=== PATIENT | female | born 1970 | race Caucasian/White ===

== ENCOUNTER 2017-05-08 13:43 | Emergency (ER) | payer BC ==
[~2017-05-08] VITALS: Ht 163.8 cm; Wt 107.5 kg
[~2017-05-08 13:43] MED LIST: LEVO75TA36 PO; TRAM-10 PO; [UNRECOGNIZED DRUG - OTHER]; [UNRECOGNIZED DRUG - OTHER]
[2017-05-08 13:45] VITALS: TEMP 36.7; Ht 163.8 cm; Wt 107.5 kg
[2017-05-08 14:21] LABS: BASO % 0.3 %; BASO ABS # 0.02 K/uL (0-0.2); COMPLETE YES; EOS % 1.9 %; HEMATOCRIT 38.5 % (37-47); IG% 0.1 %; LYMPH % 35.3 %; LYMPH ABS # 2.62 K/uL (1.2-3.4); MEAN CELL VOLUME 90.4 fL (80-100); MEAN CORPUSCULAR HGB CONC 34.3 g/dl (32-36); MEAN PLATELET VOLUME 9.6 fL (7.4-10.4); MONO % 6.3 %; NEUT % 56.1 %; PLATELET COUNT 231 K/uL (130-400); RED BLOOD COUNT 4.26 M/uL (4.2-5.4); WHITE BLOOD COUNT 7.43 K/uL (4.8-10.8)
[2017-05-08 14:33] LABS: BLOOD UREA NITROGEN 13 mg/dl (7-18); BUN/CREATININE RATIO 11.5 (10-20); CALCIUM 8.7 mg/dl (8.5-10.1); CARBON DIOXIDE 28 mmol/L (21-32); CHLORIDE 105 mmol/L (98-107); GLUCOSE 87 mg/dl (70-99); POTASSIUM 3.9 mmol/L (3.5-5.1); SODIUM 141 mmol/L (136-145)
[2017-05-08 14:35] LABS: INR 0.9 (0.9-1.1); PROTHROMBIN TIME (PATIENT) 10.1 SECONDS (9.0-12.0)
[2017-05-08 14:40] LABS: PREG INTERNAL NEGATIVE QC NEG CLEAR BACKGROUND; PREG INTERNAL POSITIVE QC POS CONTROL LINE
[2017-05-08 14:43] VITALS: PULSE 72
[2017-05-08 14:43] LABS: ALKALINE PHOSPHATASE 40 U/L (45-117); ALT/SGPT 16 U/L (12-78); AST/SGOT 17 U/L (15-37)
--- NOTE | 2017-05-08 14:44 | EMERGENCY ROOM VISIT NOTE ---
History First contact with patient: 14:01 Chief Complaint: HYPERTENSION Stated Complaint: HIGH BLOOD PRESSURE/BLURRY SIGHT IN LT EYE History of Present Illness The patient is a 46 year old female who presents to the Emergency Room via private vehicle with complaints of "high blood pressure, blurry site in the left eye". The patient states that today, she was going to work at 8 AM sat down at her computer and she noticed blurriness develop in her left eye. She states that the entire field of vision in the left eye is blurry and it is worsening. She does have a history of ocular migraines, and did take her medicine which is sumatriptan without relief. The vision persists to be blurry. She states this is unlike her typical ocular migraine, because with Bureau has flashes of lights and some pain. She again states there is no pain in the left eye. She states that she was able to call the on-call nurse with [facility] who instructed her to go to the emergency department. She also took her blood pressure after the event and it was found to be elevated. She has an appointment scheduled with her family doctor tomorrow for a blood pressure recheck. She also notes that about 2 weeks ago she pointed muscle just below the left scapular bone, and this is worse with movement. Also worse with deep breath. She states that she seen her family doctor and had x-rays which were negative. She states that when she rests the pain diminishes but when she utilizes the left shoulder instructed the muscle the pain comes back. She denies any pain at this time, chest pain, shortness of breath, fevers, chills. She denies any history of blood clots, or stroke. She does were glasses but no contacts. Review of Systems A complete 10-point Review of Systems was discussed with the patient, with pertinent positives and negatives listed in the History of Present Illness. All remaining Review of Systems questions can be considered negative unless otherwise specified. Past Medical/Surgical History Htn Family History Heart disease, HTN, Cancer, Kidney disease/stones Social History Smoking Status: Never Smoker Social History: Pt. is currently employed locally Current/Historical Medications Scheduled Levothyroxine Sodium (Synthroid), 1 TAB PO DAILY Tramadol (Ultram), 100 MG PO Q4HR Scheduled PRN Sumatriptan Succinate (Imitrex), 25 MG PO PRN PRN for Headache Allergies Coded Allergies: Erythromycin (Unverified Allergy, Unknown, ., 05/08/17) Physical Exam Vital Signs Date Time Temp Pulse Resp B/P (MAP) Pulse Ox O2 Delivery O2 Flow Rate FiO2 05/08/17 17:12 18 154/85 98 05/08/17 17:10 154/85 05/08/17 14:43 72 15 96 05/08/17 14:31 130/94 05/08/17 14:14 75 05/08/17 14:13 76 16 149/92 97 05/08/17 13:45 36.7 67 18 151/93 97 Room Air Physical Exam VITAL SIGNS - Vital signs and nursing notes were reviewed. Afebrile, hypertensive at 151/93, nontoxic tachycardic and saturating well on room air 97% . GENERAL -46-year-old female appearing her stated age who is in no acute distress. Communicates well with provider and answers questions appropriately. SKIN - Without rashes. The skin is unremarkable. HEAD - NC/AT. EYES - PERRL with EOMI bilaterally. Sclera anicteric. Palpebral conjunctiva pink and moist with no injection noted. Funduscopic exam is unremarkable of the left eye. EARS - No deformities of external structures noted on gross examination bilaterally. No pain elicited with palpation of the tragus bilaterally. External auditory canals without discharge or otorrhea. Tympanic membranes pearly cheema without retraction or bulging. No fluid or purulent material visualized behind the TM. Handle of malleus, umbo, cone of light, pars tensa/ flaccid all easily visualized. NOSE - Midline and without cyanosis. No epistaxis or purulent drainage noted. Septum midline without deviation or septal hematoma noted. MOUTH/OROPHARYNX - Without perioral cyanosis. Buccal mucosa pink and moist and without leukoplakia. Tongue midline with equal elevation of palate bilaterally. No tonsillar hypertrophy, erythema, or exudates noted. Fair dentition noted. LUNGS - Chest wall symmetric without accessory muscle use, intercostals retractions, or central cyanosis. Normal vesicular breath sounds CTA B/L. No wheezes, rales, or rhonchi appreciated. CARDIAC - RRR with S1/S2. No murmur, rubs, or gallops appreciated. MUSCULOSKELETAL: There is tenderness to palpation overlying the musculature just inferior to the left scapula. This is reproducible pain with palpation. NEUROLOGIC - Cranial nerves II through XII grossly intact. Sensory intact to light touch throughout. PSYCH - Pt is very pleasant and interacts well with examiner. An Automated Tonometer was utilized to obtain bilateral orbital pressures. The pressures in the LEFT eye were found to be 13, 15 with an average of 14. The pressures in the RIGHT eye were found to be 14, 12, with an average of 13. Patient tolerated the procedure well and no complications were met. Medical Decision & Procedures ER Provider Diagnostic Interpretation: HEAD CT NONCONTRAST CT DOSE: 767.83 mGy.cm HISTORY: New onset blurred vision in left eye TECHNIQUE: Multiaxial CT images of the head were performed without the use of intravenous contrast. Comparison: 04/08/2010 Findings: The paranasal sinuses and mastoid air cells are clear. The calvarium and skull base are intact. The ventricles and sulci are within normal limits. There is no mass, hematoma, midline shift, or acute infarct. Impression: No acute intracranial abnormality. Electronically signed by: Peter Mcallister M.D. 05/08/2017 3:02 PM Dictated Date/Time: 05/08/2017 3:01 PM Laboratory Results 05/08/17 14:00 Red Blood Count 4.26, Mean Corpuscular Volume 90.4, Mean Corpuscular Hemoglobin 31.0, Mean Corpuscular Hemoglobin Concent 34.3, Mean Platelet Volume 9.6, Neutrophils (%) (Auto) 56.1, Lymphocytes (%) (Auto) 35.3, Monocytes (%) (Auto) 6.3, Eosinophils (%) (Auto) 1.9, Basophils (%) (Auto) 0.3, Neutrophils # (Auto) 4.17, Lymphocytes # (Auto) 2.62, Monocytes # (Auto) 0.47, Eosinophils # (Auto) 0.14, Basophils # (Auto) 0.02 05/08/17 14:00 Test 05/08/17 14:00 White Blood Count 7.43 K/uL (4.8-10.8) Red Blood Count 4.26 M/uL (4.2-5.4) Hemoglobin 13.2 g/dL (12.0-16.0) Hematocrit 38.5 % (37-47) Mean Corpuscular Volume 90.4 fL (80-100) Mean Corpuscular Hemoglobin 31.0 pg (25-34) Mean Corpuscular Hemoglobin Concent 34.3 g/dl (32-36) Platelet Count 231 K/uL (130-400) Mean Platelet Volume 9.6 fL (7.4-10.4) Neutrophils (%) (Auto) 56.1 % Lymphocytes (%) (Auto) 35.3 % Monocytes (%) (Auto) 6.3 % Eosinophils (%) (Auto) 1.9 % Basophils (%) (Auto) 0.3 % Neutrophils # (Auto) 4.17 K/uL (1.4-6.5) Lymphocytes # (Auto) 2.62 K/uL (1.2-3.4) Monocytes # (Auto) 0.47 K/uL (0.11-0.59) Eosinophils # (Auto) 0.14 K/uL (0-0.5) Basophils # (Auto) 0.02 K/uL (0-0.2) RDW Standard Deviation 41.9 fL (36.4-46.3) RDW Coefficient of Variation 12.7 % (11.5-14.5) Immature Granulocyte % (Auto) 0.1 % Immature Granulocyte # (Auto) 0.01 K/uL (0.00-0.02) Prothrombin Time 10.1 SECONDS (9.0-12.0) Prothromb Time International Ratio 0.9 (0.9-1.1) Activated Partial Thromboplast Time 27.0 SECONDS (21.0-31.0) Partial Thromboplastin Ratio 1.0 Anion Gap 8.0 mmol/L (3-11) Est Creatinine Clear Calc Drug Dose 77.2 ml/min Estimated GFR () 69.7 Estimated GFR (Non- 60.2 BUN/Creatinine Ratio 11.5 (10-20) Calcium Level 8.7 mg/dl (8.5-10.1) Total Bilirubin 0.3 mg/dl (0.2-1) Aspartate Amino Transf (AST/SGOT) 17 U/L (15-37) Alanine Aminotransferase (ALT/SGPT) 16 U/L (12-78) Alkaline Phosphatase 40 U/L (45-117) Troponin I < 0.015 ng/ml (0-0.045) Total Protein 7.3 gm/dl (6.4-8.2) Albumin 3.7 gm/dl (3.4-5.0) Globulin 3.6 gm/dl (2.5-4.0) Albumin/Globulin Ratio 1.0 (0.9-2) Thyroid Stimulating Hormone (TSH) 4.810 uIu/ml (0.300-4.500) Human Chorionic Gonadotropin, Qual NEG (NEG) Medical Decision Patient was seen and evaluated as above. After obtaining a thorough history and physical examination IV access was initiated and the above workup was performed. Patient presents to us today with left posterior scapular pain 2 weeks which is associated with movement, and reproducible palpation and is believed to be a muscle strain. She was evaluated by her family doctor for this. I do not suspect pulmonary embolism, [place] or dissection. Patient's vital signs are stable other that she is still hypertensive at 151/93, and has an appointment tomorrow with her family doctor regarding her blood pressure. Focus was directed at the patient's left eye blurriness. Visual acuity is not significant for any large change. Funduscopic exam unremarkable. Pressures in the patient's eyes are within normal limits. Case was discussed with the on- call neurologist, Dr. Beltran, at 3:40 PM, and the patient was felt stable for outpatient management. I also called the on-call technology education teacher at 4:39 PM, Dr. Ramos, and spoke with him about the patient's case. He recommended verifying that the patient's pressures were not elevated, and that she could follow-up in the outpatient office for a good eye exam. I do believe this is reasonable. The patient this time is felt stable for discharge. Patient's EKG does reveal sinus rhythm with marked sinus arrhythmia, no ectopy or ischemic change. Patient was educated upon management today's findings, educated upon worrisome symptoms in which to return, had questions or purulent discharge, and was discharged home in good condition. In the evaluation and treatment of this patient, the following differential diagnoses were considered: Corneal Abrasion, Conjunctivitis, Eye Contusion, Globe Injury, Orbital Floor Injury (Blowout Fracture), Corneal Ulcer, Keratitis , Herpes Zoster Opthalmic, Blepharitis, Orbital Cellulitis, Iritis, Scleritis/ Episcleritis, Uveitis, Temporal Arteritis, Subconjunctival Hemorrhage. Impression Primary Impression: Blurred vision, left eye Departure Information Dispostion Home / Self-Care Condition GOOD Referrals Doberstein, Mane F., MD (PCP) Yoselyn Beltran M.D. Armin Ramos D.O. Patient Instructions My [facility] Additional Instructions You were seen in the emergency Department for blurriness in her left eye. EKG does not show any sign of heart attack and your blood work looks nonemergent at this time. Please follow up with her family doctor in today's visit for your blood pressure, as well as her kidney function and TSH. Please follow-up with ophthalmology by calling their office tomorrow as well as neurology. I spoke with Dr. Ramos, and Dr. Beltran here today. The numbers were provided in this paperwork, please call them first thing tomorrow morning. Please return to the emergency department with any new/concerning symptoms.
--- NOTE | 2017-05-08 15:03 | DIAGNOSTIC IMAGING REPORT ---
HEAD CT NONCONTRAST CT DOSE: 767.83 mGy.cm HISTORY: New onset blurred vision in left eye TECHNIQUE: Multiaxial CT images of the head were performed without the use of intravenous contrast. Comparison: 04/08/2010 Findings: The paranasal sinuses and mastoid air cells are clear. The calvarium and skull base are intact. The ventricles and sulci are within normal limits. There is no mass, hematoma, midline shift, or acute infarct. Impression: No acute intracranial abnormality. Electronically signed by: Peter Mcallister M.D. 05/08/2017 3:02 PM Dictated Date/Time: 05/08/2017 3:01 PM
[2017-05-08] MEDS ORDERED: SUMA25TA12 PO (15:07)
[2017-05-08] MEDS ORDERED: SYN125 PO (15:07)
[2017-05-08 17:12] VITALS: BP 154/85; O2SAT 98
== END 2017-05-08 17:19 | disposition home or self-care (01) ==
LOC: C.EDB 13:46 → C.EDC 17:19
DX: H53.8 Other visual disturbances (principal); I10 Essential (primary) hypertension; Z82.49 Family history of ischemic heart disease and other diseases of the circulatory system

== ENCOUNTER 2017-08-07 12:04 | Emergency (ER) | payer BC ==
[~2017-08-07] VITALS: Ht 162.6 cm; Wt 102.6 kg
[~2017-08-07 12:04] MED LIST changes: -LEVO75TA36 PO; +SUMA25TA12 PO; +SYN125 PO; -[UNRECOGNIZED DRUG - OTHER]; -[UNRECOGNIZED DRUG - OTHER]
[2017-08-07 12:08] VITALS: TEMP 37.2; Ht 162.6 cm; Wt 102.6 kg
[2017-08-07] MEDS ORDERED: SYN137 PO (12:19)
[2017-08-07] MEDS ORDERED: CLIN300C2 PO (12:39)
[2017-08-07] MEDS ORDERED: ONDA4TAB10 SL (12:39)
[2017-08-07] MEDS ORDERED: CLINDAMYCIN IV 900 MG in DEXTROSE 5% 100ML 100 ML IV ONE (12:45)
[2017-08-07 14:13] VITALS: BP 139/91; PULSE 63; O2SAT 96
--- NOTE | 2017-08-07 17:31 | EMERGENCY ROOM VISIT NOTE ---
History First contact with patient: 12:11 Chief Complaint: DENTAL PAIN Stated Complaint: UPPER/LOWER JAW PAIN, SWELLING TO FACE Nursing Triage Summary: pt reports teeth pain started 1 day ago and noted swelling in R side of face today History of Present Illness The patient is a 46 year old female who presents to the Emergency Room with complaints of right facial swelling as well as upper and lower jaw pain. The patient reports she underwent oral surgery in January 2017. The patient did not have any problems since that surgery. She had a regular cleaning performed by the same clinic 2 weeks ago. The patient noticed pain in the right lower teeth first, then quickly developed right upper dental pain with resolving swelling. The patient has not had any fevers or chills. She denies any drainage. She rates her discomfort an 8 out of 10. Review of Systems HEENT: Denies dizziness, visual problems, hearing loss, tinnitus. Denies difficulty swallowing or oral lesions. PULMONARY: Denies cough, shortness of breath, sputum production or hemoptysis. CARDIOVASCULAR: Denies chest pain, palpitations, dyspnea on exertion, orthopnea or peripheral edema. GASTROINTESTINAL: Denies diarrhea, constipation, nausea, vomiting, or abdominal pain. GENITOURINARY: Denies dysuria, frequency, urgency or nocturia. NEUROLOGIC: Denies history of epilepsy, CVA, TIA or chronic headaches. MUSCULOSKELETAL: Denies history of joint tenderness/swelling. SKIN: Denies rashes or lesions. PSYCHIATRIC: Denies history of depression or mental illness. ENDOCRINE: Denies history of diabetes or thyroid disorders. Past Medical/Surgical History Medical Problems: (1) Essential (Primary) Hypertension (2) Hypothyroidism Nos (3) Obesity (BMI 30-39.9) Family History FH: heart disease Social History Smoking Status: Never Smoker Alcohol Use: occasionally Marital Status: single Occupation Status: employed Current/Historical Medications Scheduled Clindamycin Hcl (Cleocin), 300 MG PO QID Levothyroxine Sodium (Levothyroxine Sodium), 137 MCG PO DAILY Ondasetron Odt (Zofran Odt), 4 MG SL Q6H Scheduled PRN Sumatriptan Succinate (Imitrex), 25 MG PO PRN PRN for Headache Physical Exam Vital Signs Date Time Temp Pulse Resp B/P (MAP) Pulse Ox O2 Delivery O2 Flow Rate FiO2 08/07/17 14:13 63 16 139/91 96 08/07/17 13:07 76 16 140/76 98 Room Air 08/07/17 12:08 37.2 65 18 114/77 97 Room Air Pain Rating (0-10): 8.0 Physical Exam CONSTITUTIONAL: Healthy and well nourished. Alert and oriented X 3 with positive affect. HEENT: Normocephalic, atraumatic. Pupils equal, round and reactive. The patient does have notable right facial edema without overriding erythema. The face is tender to palpation. OROPHARYNX: No obvious gingival erythema, fluctuance or pointing noted. No evidence for Beny's angina or retropharyngeal abscess. LYMPHATICS: No cervical chain or submandibular adenopathy appreciated. NECK: Full active range of motion without discomfort. RESPIRATORY: Clear to auscultation bilaterally with no wheezing, crackles, rhonchi or stridor. CARDIOVASCULAR: Regular rate and rhythm with no murmurs, rubs or gallops. MUSCULOSKELETAL: Full range of motion of all joints without discomfort. INTEGUMENTARY: No rash or other significant dermatologic conditions noted. NEUROLOGIC: Patient sensations are intact. Medical Decision & Procedures Medications Administered Medications (Trade) Dose Ordered Sig/Alexey Route Start Time Stop Time Status Last Admin Dose Admin Clindamycin Phosphate 900 mg/ Dextrose 106 ml @ 100 mls/hr ONE ONCE IV 08/07/17 12:45 08/07/17 13:48 DC 08/07/17 13:04 100 MLS/HR ED Course Patient history and physical exam were performed. Nurse's notes were reviewed. Vital signs were reviewed and were normal. The patient is afebrile. IV access was established, and labs were drawn. The patient was administered IV clindamycin. It is noted that the patient reports a history of allergies to erythromycin, but reports that her reaction was vomiting. The patient had no adverse reaction to IV clindamycin. The patient was provided prescriptions for Cleocin 300 mg 4 times a day 10 days, and Zofran 4 mg ODT if needed for any developing nausea. She was encouraged to alternate ibuprofen and Tylenol as needed for pain. She refused any prescription analgesics. She was instructed to follow-up with her oral surgeon for further reevaluation and management. Return to the emergency department for any progressively worsening symptoms, swelling, pain or increasing fever. The patient was happy with plan of care, voiced understanding of all discharge instructions, and rated her pain a 4 out of 10 at the conclusion of my exam. Medical Decision [place] Drug Monitoring Program Search Results: patient reviewed within database, no issues identified Medication Reconcilliation Current Medication List: was personally reviewed by me Blood Pressure Screening Patient's blood pressure: Elevated blood pressure Blood pressure disposition: Elevated BP felt to be situational Impression Primary Impression: Dental abscess Departure Information Dispostion Home / Self-Care Condition GOOD Prescriptions Ondasetron Odt (ZOFRAN ODT) 4 Mg Tab 4 MG SL Q6H for Nausea, #10 TAB Prov: Duncan Little PA 08/07/17 Clindamycin Hcl (CLEOCIN) 300 Mg Cap 300 MG PO QID for 10 Days, #40 CAP Prov: Duncan Little PA 08/07/17 Forms HOME CARE DOCUMENTATION FORM, IMPORTANT VISIT INFORMATION Patient Instructions My [facility], ED Dental Abscess Facial Cellulitis Additional Instructions Complete all Cleocin antibiotics as prescribed. Take Zofran ODT as needed for any developing nausea. Ibuprofen 800 mg and/or Tylenol 1000 mg every 8 hours. You may also alternate these medications for more effective pain relief: Ibuprofen --4 HRS--> Tylenol --4 HRS--> ibuprofen --4 HRS--> Tylenol .... Follow-up with your oral surgeon for further reevaluation and management. Return to the emergency department for progressively worsening infection. FOR WORK: Please excuse from work today and tomorrow, Sun-Mon 08/07-08/08.
== END 2017-08-07 14:15 | disposition home or self-care (01) ==
LOC: C.EDB 12:05 → C.EDD 14:15
DX: K04.7 Periapical abscess without sinus (principal); Z98.818 Other dental procedure status; I10 Essential (primary) hypertension; E03.9 Hypothyroidism, unspecified; E66.9 Obesity, unspecified; Z68.38 Body mass index [BMI] 38.0-38.9, adult; Z79.899 Other long term (current) drug therapy